=== PATIENT | female | born 1990 | race Caucasian/White ===

== ENCOUNTER 2017-03-30 06:38 | Emergency (ER) | payer MEDICAID ==
[2017-03-30] MEDS ORDERED: Diazepam TAB(*) 5 MG PO ONE (07:22)
[2017-03-30] MEDS ORDERED: NS 0.9% 1000 ML* 1,000 ML IV ONE (07:22)
[2017-03-30 11:18] LABS: Albumin 5.1 g/dL (3.2-5.2); Calcium 10.1 mg/dL (8.6-10.3); EGFR African American 109.1 (>60); EGFR Non-African American 84.8 (>60); Globulin 3.5 g/dL (2-4); Magnesium 2.4 mg/dL (1.9-2.7); Total Bilirubin 0.9 mg/dL (0.2-1.0); Total Protein 8.6 g/dL (6.4-8.9)
[2017-03-30 11:37] LABS: TSH (Thyroid Stimulating Horm) 2.09 mcIU/mL (0.34-5.60)
[2017-03-30 11:45] LABS: Prolactin 4.7 ng/mL (1.0-25.0)
[2017-03-30 13:54] VITALS: BP 102/62
[2017-03-30 14:27] LABS: Urine Bacteria Absent (Absent); Urine Bilirubin Negative (Negative); Urine Glucose Negative (Negative); Urine Nitrite Negative (Negative)
--- NOTE | 2017-03-30 15:39 | ED ---
Lakisha Barboza Edward, scribed for Paulino Cr MD on 03/30/17 at 0722 . Neurological HPI - HPI Summary HPI Summary: 26 y/o female presents to ED c/o of twitches at 03:00-04:00 this morning, indicative of seizures previously. Patient stated she has had several episodes of LOC since the morning. Associated sx: intermittent CHRIS. Denies blurred vision , CP, SOB, dysuria, ABD pain and pain in lower. Patient went to [facility] in the past for an opiate disorder; currently goes for marijuana use. No known allergies. Smoker. PMHx seizure disorder. - History of Current Complaint Chief Complaint: EDSeizure Stated Complaint: TWITCHING Time Seen by Provider: 03/30/17 07:14 Hx Obtained From: Patient Pain Intensity: 0 - Allergy/Home Medications Allergies/Adverse Reactions: Allergies Allergy/AdvReac Type Severity Reaction Status Date / Time No Known Allergies Allergy Verified 03/30/17 06:59 Home Medications: Home Medications Ativan 1 MG TAB 03/30/17 [History Confirmed 03/30/17] Gabapentin 03/30/17 [History] Seroquel 03/30/17 [History] Wellbutrin TAB* 03/30/17 [History Confirmed 03/30/17] PMH/Surg Hx/FS Hx/Imm Hx Previously Healthy: No Neurological History: Reports: Hx Seizures Infectious Disease History: No Infectious Disease History: Denies: Traveled Outside the [place] in Last 30 Days - Family History Known Family History: Positive: Seizure Disorder - Father Negative: Cardiac Disease, Diabetes - Social History Occupation: Unemployed Lives: Alone Hx Substance Use: Yes Substance Use Type: Reports: Marijuana - [facility], Other - Opiate disorder ([facility]) Hx Tobacco Use: Yes Smoking Status (MU): Current Every Day Smoker Type: Cigarettes Review of Systems Constitutional: Negative Eyes: Negative ENT: Negative Cardiovascular: Negative Negative: Palpitations, Chest Pain Respiratory: Negative Negative: Shortness Of Breath Gastrointestinal: Negative Negative: Abdominal Pain Genitourinary: Negative Negative: dysuria Musculoskeletal: Negative Skin: Negative Neurological: Other - Twitches indicative of seizure Positive: Syncope - Intermittent LOC throughout the night Psychological: Normal All Other Systems Reviewed And Are Negative: Yes Physical Exam - Summary Physical Exam Summary: The patient is well-nourished in no acute distress and in no acute pain. The skin is warm and skin color reflects adequate perfusion. The patient is a little diaphoretic. HEENT: The head is normocephalic and atraumatic. The pupils are equal and reactive. The conjunctivae are clear and without drainage. Nares are patent and without drainage. Mouth reveals moist mucous membranes and the throat is without erythema and exudate. The external ears are intact. The ear canals are patent and without drainage. The tympanic membranes are intact. Neck is supple with full range of motion and non-tender. There are no carotid bruits. There is no neck vein distension. Respiratory: Chest is non-tender. Lungs are clear to auscultation and breath sounds are symmetrical and equal. Cardiovascular: Hear is regular rate and rhythm. There is no murmur or rub auscultated. There is no peripheral edema and pulses are symmetrical and equal. Abdomen: The abdomen is soft and non-tender. There are normal bowel sounds heard in all four quadrants and there is no organomegaly palpated. Musculoskeletal: There is no back pain noted. Extremities are non-tender with full range of motion. There is good capillary refill. There is no peripheral edema or calf tenderness elicited. There is no cyanosis. Neurological: Patient is alert and oriented to person, place and time. The patient has symmetrical motor strength in all four extremities. Cranial nerves are grossly intact. Deep tendon reflexes are symmetrical and equal in all four extremities. [id number] exam is good. Psychiatric: The patient has an appropriate affect and does not exhibit any anxiety or depression. Triage Information Reviewed: Yes Vital Signs On Initial Exam: Initial Vitals Temp Pulse Resp BP Pulse Ox 98.4 F 88 14 105/69 100 03/30/17 06:40 03/30/17 06:40 03/30/17 06:40 03/30/17 06:40 03/30/17 06:40 Vital Signs Reviewed: Yes Diagnostics - Vital Signs Vital Signs Temp Pulse Resp BP Pulse Ox 03/30/17 06:40 98.4 F 88 14 105/69 100 - Laboratory Lab Results: Lab Results 03/30/17 03/30/17 Range/Units 10:46 13:25 Sodium 132 L (133-145) mmol/L Potassium 4.0 (3.5-5.0) mmol/L Chloride 102 (101-111) mmol/L Carbon Dioxide 20 L (22-32) mmol/L Anion Gap 10 (2-11) mmol/L BUN 13 (6-24) mg/dL Creatinine 0.81 (0.51-0.95) mg/dL Est GFR ( Amer) 109.1 (>60) Est GFR (Non-Af Amer) 84.8 (>60) BUN/Creatinine Ratio 16.0 (8-20) Glucose 90 (70-100) mg/dL Calcium 10.1 (8.6-10.3) mg/dL Magnesium 2.4 (1.9-2.7) mg/dL Total Bilirubin 0.90 (0.2-1.0) mg/dL AST 15 (13-39) U/L ALT 6 L (7-52) U/L Alkaline Phosphatase 53 (34-104) U/L Total Protein 8.6 (6.4-8.9) g/dL Albumin 5.1 (3.2-5.2) g/dL Globulin 3.5 (2-4) g/dL Albumin/Globulin Ratio 1.5 (1-3) TSH 2.09 (0.34-5.60) mcIU/mL Prolactin 4.7 (1.0-25.0) ng/mL Urine Color Yellow Urine Appearance Clear Urine pH 7.0 (5-9) Ur Specific Roll 1.029 (1.010-1.030) Urine Protein 1+(30 mg/dl) H (Negative) Urine Ketones 1+ H (Negative) Urine Blood Negative (Negative) Urine Nitrate Negative (Negative) Urine Bilirubin Negative (Negative) Urine Urobilinogen Negative (Negative) Ur Leukocyte Esterase Negative (Negative) Urine WBC (Auto) Absent (Absent) Urine RBC (Auto) 2+(6-10/hpf) H (Absent) Ur Squamous Epith Cells Present H (Absent) Urine Bacteria Absent (Absent) Urine Glucose Negative (Negative) Result Diagrams: 03/30/17 10:46 Lab Statement: Any lab studies that have been ordered have been reviewed, and results considered in the medical decision making process. - EKG 1 EKG Interpretation: 09:13 - Sinus rhythm. Normal axis. No STEMI. Re-Evaluation - Re-Evaluation 1 Re-Evaluation Time: 13:18 Change: Improved - Twitching gone Course/Dx - Course Assessment/Plan: Patient presented to ED c/o twitching. PMHx seizure disorder - in the past, this same twitching was indicative of a seizure. Pt states she had several episodes of LOC in ED. We were unable to acquire blood work in the ED course. On reeval @ 13:18, pt feels better - her twitching has stopped and she feels much better. Patient will be discharged with Near Syncope and questionable Seizures, with f/u with her PCP in 2-3 days. - Differential Dx Differential Diagnoses Neuro: Positive: Anxiety, Seizure Disorder, Other - drug abuse, dehydration - Diagnoses Provider Diagnoses: Near syncope, Questionable seizures Discharge - Discharge Plan Condition: Stable Disposition: HOME Patient Education Materials: Near Syncope (ED), Nonepileptic Seizures (ED) Referrals: [facility] [Outside] - 3 Days (Follow up with your PCP in 2-3 days.) The documentation as recorded by the Lakisha spence Edward accurately reflects the service I personally performed and the decisions made by me, Paulino Cr MD.
== END 2017-03-30 13:58 | disposition home or self-care (01) ==
LOC: ED 06:38
DX: R55 Syncope and collapse (principal); R56.9 Unspecified convulsions; F17.210 Nicotine dependence, cigarettes, uncomplicated
CPT/HCPCS: 36415; 80053; 81003; 81015; 83735; 84146; 84443; 93005; 99283; A9270-GY

== ENCOUNTER 2017-04-04 13:07 | Emergency (ER) | payer MEDICAID ==
[2017-04-04] MEDS ORDERED: Diazepam TAB(*) 2 MG PO ONE (14:04)
--- NOTE | 2017-04-04 14:11 | RAD ---
INDICATION: Palpitations COMPARISON: None TECHNIQUE: An AP portable view obtained at 1445 hours is submitted. FINDINGS: Bones/Soft Tissues: There are no acute bony findings. Cardiomediastinal: The cardiomediastinal silhouette is normal. Lungs: There are no infiltrates. Pleura: There are no pleural effusions. Other: None IMPRESSION: NO ACTIVE DISEASE.
[2017-04-04 14:30] LABS: Hematocrit 34 % (35-47); Hemoglobin 11.7 g/dl (12.0-16.0); Mean Corpuscular HGB Conc 34 g/dl (31-36); Mean Corpuscular Hemoglobin 29 pg (27-31); Mean Corpuscular Volume 85 fL (80-97); Mean Platelet Volume 8 um3 (7.4-10.4); Red Blood Count 4.06 10^6/ul (4.0-5.4); Red Cell Distribution Width 13 % (10.5-15); White Blood Count 5.8 10^3/ul (3.5-10.8)
[2017-04-04 14:45] LABS: ALT 8 U/L (7-52); Albumin 4.1 g/dL (3.2-5.2); Alkaline Phosphatase 42 U/L (34-104); Blood Urea Nitrogen 6 mg/dL (6-24); CO2 Carbon Dioxide 23 mmol/L (22-32); Calcium 8.9 mg/dL (8.6-10.3); Chloride 107 mmol/L (101-111); EGFR African American 119.2 (>60); EGFR Non-African American 92.7 (>60); Globulin 2.7 g/dL (2-4); Glucose 87 mg/dL (70-100); Magnesium 2.4 mg/dL (1.9-2.7); Sodium 136 mmol/L (133-145); Total Protein 6.8 g/dL (6.4-8.9)
[2017-04-04 14:49] LABS: Troponin I 0.01 ng/mL (<0.04)
[2017-04-04 14:55] LABS: AST 15 U/L (13-39); Anion Gap 6 mmol/L (2-11)
[2017-04-04 15:05] LABS: TSH (Thyroid Stimulating Horm) 0.89 mcIU/mL (0.34-5.60)
[2017-04-04 16:17] LABS: Prolactin 3.4 ng/mL (1.0-25.0)
[2017-04-04 18:01] VITALS: BP 107/65
--- NOTE | 2017-04-04 18:11 | ED ---
Yao Barboza Claudia, scribed for Joshua Rowe MD on 04/04/17 at 1406 . Neurological HPI - HPI Summary HPI Summary: 26 year old female presents to [facility] ED post Sz episode. Pt is unsure the length of the Sz since it was unwitnessed and she did LOC. Pt denies any fever and any incontinence. Pt states that she has a PMHX of Sz and takes 800mg 4x a day and has been compliant with her Rx. Pt notes unintentional twitching post Sz that is persistent upon arrival at ED. She notes this is a usual Sx accompanying her Sz and that the ED usually gives her valium. Pt states that she is inpatient at [facility] and has not been getting much sleep which might be contributing to her Sz today and last week. She notes she has not been to her neurologist in [place] for a while and her PCP Rx her Gabbapentin. She notes pain 6/10 on pain scale. Pt also takes 150mg of Wellbutrin once per day. - History of Current Complaint Chief Complaint: EDSeizure Stated Complaint: SEIZURE Time Seen by Provider: 04/04/17 13:39 Hx Obtained From: Patient Pain Intensity: 6 Pain Scale Used: 0-10 Numeric Character: Other: - UNITNENTIONAL TWITCH POST SZ Syncope Context: Unwitnessed, Loss of Consciousness: Yes Frequency: Episodes x___ - 1 Aggravating: Sleep Deprivation Associated Signs and Symptoms: Positive: Seizure. Negative: Incontinent Bladder /Bowel - Allergy/Home Medications Allergies/Adverse Reactions: Allergies Allergy/AdvReac Type Severity Reaction Status Date / Time No Known Allergies Allergy Verified 03/30/17 06:59 Home Medications: Home Medications Gabapentin CAP(*) [Neurontin 400 mg CAP(*)] 1,600 mg PO BEDTIME 04/04/17 [ History Confirmed 04/04/17] Gabapentin CAP(*) [Neurontin 400 mg CAP(*)] 800 mg PO 0900 04/04/17 [History Confirmed 04/04/17] QUEtiapine TAB* [SEROquel TAB*] 300 mg PO BEDTIME 04/04/17 [History Confirmed ] buPROPion SR TAB* [Wellbutrin SR TAB*] 150 mg PO DAILY 04/04/17 [History Confirmed 04/04/17] PMH/Surg Hx/FS Hx/Imm Hx Previously Healthy: Yes Endocrine/Hematology History: Denies: Hx Diabetes Cardiovascular History: Denies: Hx Myocardial Infarction Neurological History: Reports: Hx Seizures Infectious Disease History: Yes Infectious Disease History: Denies: Traveled Outside the [place] in Last 30 Days - Family History Known Family History: Positive: Seizure Disorder - Father Negative: Cardiac Disease, Diabetes - Social History Occupation: Unemployed Lives: Custodial - [facility] Alcohol Use: Rare Hx Substance Use: Yes Substance Use Type: Reports: Marijuana - [facility], Other - Opiate disorder ([facility]) Substance Use Comment - Amount & Last Used: in treatment at [facility] Hx Tobacco Use: Yes Smoking Status (MU): Current Every Day Smoker Type: Cigarettes Review of Systems Constitutional: Negative Negative: Fever Eyes: Negative ENT: Negative Cardiovascular: Negative Respiratory: Negative Gastrointestinal: Negative Genitourinary: Negative Negative: incontinence Musculoskeletal: Negative Skin: Negative Neurological: Other - UNINTENTIONAL TWITCH POST SZ Psychological: Normal All Other Systems Reviewed And Are Negative: Yes Physical Exam - Summary Physical Exam Summary: VITAL SIGNS: Reviewed. GENERAL: Patient is a well-developed and nourished female who is lying comfortable in the stretcher. Patient is not in any acute respiratory distress. HEAD AND FACE: No signs of trauma. No ecchymosis, hematomas or skull depressions. No sinus tenderness. EYES: PERRLA, EOMI x 2, No injected conjunctiva, no nystagmus. EARS: Hearing grossly intact. Ear canals and tympanic membranes are within normal limits. MOUTH: Oropharynx within normal limits. NECK: Supple, trachea is midline, no adenopathy, no JVD, no carotid bruit, no c- spine tenderness, neck with full ROM. CHEST: Symmetric, no tenderness at palpation LUNGS: Clear to auscultation bilaterally. No wheezing or crackles. CVS: Regular rate and rhythm, S1 and S2 present, no murmurs or gallops appreciated. ABDOMEN: Soft, non-tender. No signs of distention. No rebound no guarding, and no masses palpated. Bowel sounds are normal. EXTREMITIES: FROM in all major joints, no edema, no cyanosis or clubbing. NEURO: Alert and oriented x 3. No acute neurological deficits. Speech is normal and follows commands. UNINTENTIONAL TWITCH SKIN: Dry and warm Triage Information Reviewed: Yes Vital Signs On Initial Exam: Initial Vitals Temp Pulse Resp BP Pulse Ox 98.2 F 71 20 105/84 100 04/04/17 13:12 04/04/17 13:12 04/04/17 13:12 04/04/17 13:12 04/04/17 13:12 Vital Signs Reviewed: Yes Diagnostics - Vital Signs Vital Signs Temp Pulse Resp BP Pulse Ox 04/04/17 13:18 73 100 04/04/17 13:15 105/84 04/04/17 13:12 98.2 F 71 20 105/84 100 - Laboratory Lab Results: Lab Results 04/04/17 04/04/17 04/04/17 Range/Units 14:15 14:15 14:15 WBC 5.8 (3.5-10.8) 10^3/ul RBC 4.06 (4.0-5.4) 10^6/ul Hgb 11.7 L (12.0-16.0) g/dl Hct 34 L (35-47) % MCV 85 (80-97) fL MCH 29 (27-31) pg MCHC 34 (31-36) g/dl RDW 13 (10.5-15) % Plt Count 231 (150-450) 10^3/ul MPV 8 (7.4-10.4) um3 Neut % (Auto) 45.8 (38-83) % Lymph % (Auto) 44.4 (25-47) % Wilbarger % (Auto) 6.9 (1-9) % Eos % (Auto) 2.3 (0-6) % Baso % (Auto) 0.6 (0-2) % Absolute Neuts (auto) 2.7 (1.5-7.7) 10^3/ul Absolute Lymphs (auto) 2.6 (1.0-4.8) 10^3/ul Absolute Monos (auto) 0.4 (0-0.8) 10^3/ul Absolute Eos (auto) 0.1 (0-0.6) 10^3/ul Absolute Basos (auto) 0 (0-0.2) 10^3/ul Absolute Nucleated RBC 0 10^3/ul Nucleated RBC % 0.1 Sodium 136 (133-145) mmol/L Potassium 4.0 (3.5-5.0) mmol/L Chloride 107 (101-111) mmol/L Carbon Dioxide 23 (22-32) mmol/L Anion Gap 6 (2-11) mmol/L BUN 6 (6-24) mg/dL Creatinine 0.75 (0.51-0.95) mg/dL Est GFR ( Amer) 119.2 (>60) Est GFR (Non-Af Amer) 92.7 (>60) BUN/Creatinine Ratio 8.0 (8-20) Glucose 87 (70-100) mg/dL Lactic Acid 0.6 (0.5-2.0) mmol/L Calcium 8.9 (8.6-10.3) mg/dL Magnesium 2.4 (1.9-2.7) mg/dL Total Bilirubin 0.50 (0.2-1.0) mg/dL AST 15 (13-39) U/L ALT 8 (7-52) U/L Alkaline Phosphatase 42 (34-104) U/L CK-MB (CK-2) 0.9 (0.6-6.3) ng/mL Troponin I 0.01 (<0.04) ng/mL Total Protein 6.8 (6.4-8.9) g/dL Albumin 4.1 (3.2-5.2) g/dL Globulin 2.7 (2-4) g/dL Albumin/Globulin Ratio 1.5 (1-3) TSH 0.89 (0.34-5.60) mcIU/mL Prolactin 3.4 (1.0-25.0) ng/mL Beta HCG, Quant < 0.60 mIU/mL Result Diagrams: 04/04/17 14:15 04/04/17 14:15 Lab Statement: Any lab studies that have been ordered have been reviewed, and results considered in the medical decision making process. - Radiology CXR Xray Interpretation: No Acute Changes - NO ACTIVE DISEASE Radiology Interpretation Completed By: Radiologist - EKG 15:05 Cardiac Rate: NL EKG Rhythm: Sinus Rhythm - 66 beats/min ST Segment: Normal - NO ST elevation NIH Scale - NIH Scale Level of Consciousness: Alert/Keenly Responsive Ask Patient the Month and His/Her Age: Both Correct Ask Pt to Open/Close Eyes and Partner Marketing Intern/Release Non-Paretic Hand: Both Correctly Best Gaze (Only Horizontal Eye Movement): Normal Visual Field Testing: No Visual Loss Facial Paresis-Pt to Smile & Close Eyes or Grimace Symmetry: Normal/Symmetrical Motor Function - Right Arm: No Drift-Holds 10 Seconds Motor Function - Left Arm: No Drift-Holds 10 Seconds Motor Function - Right Leg: No Drift-Holds 10 Seconds Motor Function - Left Leg: No Drift-Holds 10 Seconds Limb Ataxia-Must be out of Proportion to Weakness Present: Absent Sensory (Use Pinprick to Test Arms/Legs/Trunk/Face): Normal Best Language (Describe Picture, Name Items): No Aphasia Dysarthria (Read Several Words): Normal Extinction and Inattention: No Abnormality Total Score: 0 Re-Evaluation - Re-Evaluation 1 Re-Evaluation Time: 15:19 Comment: Pt states that she is doing better but her unintentional twitching persists. Course/Dx - Course Course Of Treatment: 26 year old female presents to [facility] ED post Sz episode. Pt is unsure the length of the Sz since it was unwitnessed and she did LOC. Pt denies any fever and any incontinence. Pt states that she has a PMHX of Sz and takes 800mg 4x a day and has been compliant with her Rx. Pt notes unintentional twitching post Sz that is persistent upon arrival at ED. She notes this is a usual Sx accompanying her Sz and that the ED usually gives her valium. Pt states that she is inpatient at [facility] and has not been getting much sleep which might be contributing to her Sz today and last week. She notes she has not been to her neurologist in [place] for a while and her PCP Rx her Gabbapentin. She notes pain 6/10 on pain scale. Pt also takes 150mg of Wellbutrin once per day. Assessment/Plan: Results are within nml limits except for slight anemia. CXR is negative for any acute pathology. In the ed course the pt was give 4mg of Ativan and the Sx improved. I discussed the pt with Dr. Whitfield who examined the pt, after examination he requested to do an EEG. read the EEG and he recommends the pt to be d/c home with follow-up at his office. He also requested that shediscontinue the Wellbutrin. He thinks the Wellbutrin will decrease the threshold for Sz. I disclosed the case with Dr. Morley from psychiatry. He recommends the discontinue of Wellbutrin with a taper of 75mg for 7 days and then completely discontinue. He also requested if needed another medication Effexor would be another medication. However the pt declines Effexor and states she will continue taking Adderall which is Rx by her PCP. The pt is hemodynamically stable, alert and oriented x3 and will be d/c to [facility]. - Diagnoses Provider Diagnoses: Seizure - Physician Notifications Discussed Care Of Patient With: Consulted with Dr. Whitfield whom recommends EEG - Consulted with the psychiatrist on the change of Rx 1732 Time Discussed With Above Provider: 15:22 Discharge - Discharge Plan Condition: Stable Disposition: HOME Patient Education Materials: Recurrent Seizures in Adults (ED) Referrals: Non Staff,Doctor [Primary Care Provider] - Rambo Whitfield MD [Medical Doctor] - 2 Days Additional Instructions: PER INSTRUCTED: PLEASE TAKE WELLBUTRIN FOR 1 WEEK AT 75MG THEN DISCONTINUE THE WELLBUTRIN AND START THE ADDERALL THAT YOU ALREADY HAVE A PRESCRIPTION FOR FROM YOUR PCP. The documentation as recorded by the Yao spence Claudia accurately reflects the service I personally performed and the decisions made by me, Joshua Rowe MD.
--- NOTE | 2017-04-04 22:03 | CONS ---
NEUROLOGICAL CONSULTATION: DATE OF CONSULT/DICTATION: 04/04/17 - EMERGENCY DEPT PATIENT OF: Dr. Rowe. HISTORY OF PRESENT ILLNESS: This is a 26-year-old woman who has a several-year history of apparent seizures, although the details are not well known. She was apparently followed by a neurologist at [place] for number of years, but she does not remember his name. She has not been following with this doctor for a while. She has been on Neurontin 800 mg 4 times a day she notes for her seizure disorder. She has history of opioid addiction. She recently begun smoking marijuana and she was in an inpatient drug rehabilitation center. She notes that she has not been using any other street drugs or un-prescribed use of medication and has not had any withdrawal. She has been Wellbutrin for the past 4 or 5 months as well as she is on Seroquel. She denies any Ativan use, but then she was in the hospital in the ER last week on the . Apparently, she has been on Ativan. She could not describe her seizures, but had one in December and then she was in the emergency room last week with what was described as a loss of consciousness with some persistent twitching, which stopped while she was in the ER. Today, she had an apparent loss of consciousness at roughly noon or so and has had jerking of her body while she was awake that has persisted over 3 to 4-hour timeframe. This is similar to her prior spells. This jerking may be lasting a little bit longer. She has been in recent good health without any other medical problems other than her substance abuse history, her seizures and being treated for depression. She has had a past history of ADHD. PAST SURGICAL HISTORY: She denied any surgeries. ALLERGIES: She has no known drug allergies. SOCIAL HISTORY: She smokes every day. FAMILY HISTORY: No family history for seizures. REVIEW OF SYSTEMS: Negative in the all 14 spheres other than the HPI. PHYSICAL EXAMINATION: On exam, temperature 98.2, pulse 77, respirations 17, blood pressure 119/66. She is alert and oriented with normal speech and comprehension. Cranial nerves II through XII were normal. Fundi were benign. Motor exam revealed normal tone and strength to [id number]. Sensation intact to light touch. Deep tendon reflexes 2 and equal. Downgoing toes. Chest: Clear. Cardiovascular: Regular rate and rhythm without murmur. Abdomen : Soft with positive bowel sounds. LABORATORY DATA/DIAGNOSTIC DATA: Her labs include normal white count, hematocrit 34, platelets 231, normal CMP, beta HCG is negative. Prolactin has been ordered. TSH is normal. IMPRESSION: Lena has prolonged twitching, which if this is organic could be myoclonic jerks, but it seems when doing the exam with her and she can be distracted from these jerks and I wonder if there is a psychological components. It is hard to be sure and I am obtaining an EEG to try to capture events during this and I will also call up to [facility] to see if we can get further information on her. Thank you for sharing her case. [id number]/CPS #: [id number] BLAKE
== END 2017-04-04 18:00 | disposition home or self-care (01) ==
LOC: ED 13:07
DX: R56.9 Unspecified convulsions (principal); F17.210 Nicotine dependence, cigarettes, uncomplicated
CPT/HCPCS: 36415; 71010; 80053; 80171; 82553; 83605; 83735; 84146; 84443; 84484; 84702; 85025; 93005; 95816; 99283; A9270-GY

== ENCOUNTER → 2017-04-17 10:48 | Emergency (ER) | payer MEDICAID ==
--- NOTE | 2017-04-17 12:10 | RAD ---
HISTORY: seizure, hit head COMPARISONS: None TECHNIQUE: Multiple contiguous axial CT scans were obtained of the head without intravenous contrast. FINDINGS: HEMORRHAGE/INFARCT: There is no hemorrhage or acute infarct. MASSES/SHIFT: There is no mass or shift. EXTRA-AXIAL SPACES: There are no extra-axial fluid collections. SULCI AND VENTRICLES: The sulci and ventricles are normal in size and position for the patient's stated age. CEREBRUM: There are no focal parenchymal abnormalities. BRAINSTEM: There are no focal parenchymal abnormalities. CEREBELLUM: There are no focal parenchymal abnormalities. VESSELS: The vessels are grossly normal. PARANASAL SINUSES: The paranasal sinuses are clear. ORBITS: The orbits are unremarkable. BONES AND SOFT TISSUE: No bone or soft tissue abnormalities are noted. OTHER: None IMPRESSION: NO ACUTE INTRACRANIAL PATHOLOGY.
--- NOTE | 2017-04-17 12:20 | ED ---
Head Injury - HPI Summary HPI Summary: Patient presents s/p seizure. She states she does not know the type of seizures she normally has. She is a [facility] patient and has been having seizures more frequently since being at [facility]. On gabapentin 300mg four times daily for her seizures, but denies any other seizure medication. Currently on Wellbutrin despite being told by Dr Whitfield on neuro visit to discontinue. She does not think this is the reason for her increased seizures. She is on seroquil and melatonin at bedtime for sleep, but states it does not help and has chronic insomnia only sleeping 2 hours a day. Last visit she had full blood work which did not show anything. Today, she states she had a typical seizure and hit the left side of her frontal head. Denies LOC, but notes to some confusion s/p seizure which is typical for her. - History Of Current Complaint Chief Complaint: EDSeizure Stated Complaint: SEIZURE Time Seen by Provider: 04/17/17 11:07 Hx Obtained From: Patient Mechanism Of Injury: Blunt Trauma Onset/Duration: Started Hours Ago Onset of Pain: Minutes Severity Currently: Moderate Severity Initially: Moderate Pain Intensity: 7 Pain Scale Used: 0-10 Numeric Location of Head Injury: Frontal Location: Discrete At: - frontal left Alleviating Factor(s): Rest Associated Signs And Symptoms: LOC Duration Unknown, Confusion - Risk Factors SDH Risk Factor: Negative - Allergies/Home Medications Allergies/Adverse Reactions: Allergies Allergy/AdvReac Type Severity Reaction Status Date / Time No Known Allergies Allergy Verified 03/30/17 06:59 PMH/Surg Hx/FS Hx/Imm Hx Previously Healthy: Yes Endocrine/Hematology History: Denies: Hx Diabetes Cardiovascular History: Denies: Hx Myocardial Infarction Neurological History: Reports: Hx Seizures - Surgical History Surgery Procedure, Year, and Place: right arm nerve surgery, tonsilletomy - Immunization History Hx Pertussis Vaccination: No Immunizations Up to Date: Unable to Obtain/Confirm Infectious Disease History: No Infectious Disease History: Denies: Traveled Outside the [place] in Last 30 Days - Family History Known Family History: Positive: Seizure Disorder - Father Negative: Cardiac Disease, Diabetes - Social History Occupation: Unemployed Lives: With Family Alcohol Use: Rare Hx Substance Use: Yes Substance Use Type: Reports: Marijuana, Other Substance Use Comment - Amount & Last Used: in treatment at [facility] Hx Tobacco Use: Yes Smoking Status (MU): Current Every Day Smoker Type: Cigarettes Review of Systems Constitutional: Negative Eyes: Negative Cardiovascular: Negative Respiratory: Negative Positive: no symptoms reported, see HPI Musculoskeletal: Negative Positive: Headache Psychological: Normal All Other Systems Reviewed And Are Negative: Yes Physical Exam Triage Information Reviewed: Yes Vital Signs On Initial Exam: Initial Vitals Temp Pulse Resp BP Pulse Ox 98.5 F 79 21 110/67 98 04/17/17 11:02 04/17/17 11:02 04/17/17 11:02 04/17/17 11:02 04/17/17 11:02 Vital Signs Reviewed: Yes Appearance: Positive: Well-Appearing, Well-Nourished Skin: Positive: Warm, Skin Color Reflects Adequate Perfusion Head/Face: Positive: Normal Head/Face Inspection Eyes: Positive: EOMI, DENIS, Conjunctiva Clear Neck: Positive: Supple, No Lymphadenopathy Respiratory/Lung Sounds: Positive: Clear to Auscultation, Breath Sounds Present Cardiovascular: Positive: Normal, RRR Musculoskeletal: Positive: Normal, Strength/ROM Intact Neurological: Positive: Sensory/Motor Intact, Alert, Oriented to Person Place, Time, CN Intact II-III, Speech Normal Psychiatric: Positive: Normal - Kofi Coma Scale Best Eye Response: 4 - Spontaneous Coma Scale Total: 15 Diagnostics - Vital Signs Vital Signs Temp Pulse Resp BP Pulse Ox 04/17/17 11:02 98.5 F 79 21 110/67 98 - Laboratory Lab Statement: Any lab studies that have been ordered have been reviewed, and results considered in the medical decision making process. Head Injury Course/Dx Course Of Treatment: CT brain WNL. Patient and provider both agreed blood work would not need to be drawn d/t typical seizure symptoms. She is currently on no medications and recently had a full workup with neuro consult for her seizures. Patient is OK for discharge. - Diagnoses Differential Diagnosis/HQI/PQRI: Concussion With LOC, Concussion Without LOC, Other - seizure, migraine Provider Diagnoses: Seizure Discharge - Discharge Plan Condition: Stable Disposition: HOME Patient Education Materials: Nonepileptic Seizures (ED) Referrals: Non Staff,Doctor [Primary Care Provider] - Additional Instructions: Follow up with neurologist as needed
[2017-04-17 13:30] VITALS: BP 107/64
== END | disposition home or self-care (01) ==
LOC: ED 10:48
DX: R56.9 Unspecified convulsions (principal); R41.0 Disorientation, unspecified; R51 Headache; F17.210 Nicotine dependence, cigarettes, uncomplicated
CPT/HCPCS: 70450; 99282

== ENCOUNTER 2017-04-28 12:59 | Emergency (ER) | payer MEDICAID ==
[2017-04-28 14:13] LABS: Hematocrit 40 % (35-47); Hemoglobin 13.3 g/dl (12.0-16.0); Mean Corpuscular HGB Conc 34 g/dl (31-36); Mean Corpuscular Hemoglobin 28 pg (27-31); Mean Corpuscular Volume 83 fL (80-97); Mean Platelet Volume 7 um3 (7.4-10.4); Red Blood Count 4.76 10^6/ul (4.0-5.4); Red Cell Distribution Width 14 % (10.5-15); White Blood Count 8.1 10^3/ul (3.5-10.8)
[2017-04-28 14:23] LABS: Albumin 4.3 g/dL (3.2-5.2); BUN/Creatinine Ratio 13.2 (8-20); Calcium 9.9 mg/dL (8.6-10.3); EGFR African American 95.4 (>60); EGFR Non-African American 74.2 (>60); Globulin 3.2 g/dL (2-4); Magnesium 1.8 mg/dL (1.9-2.7); Potassium 3.5 mmol/L (3.5-5.0); Total Bilirubin 0.3 mg/dL (0.2-1.0); Total Protein 7.5 g/dL (6.4-8.9)
[2017-04-28 15:31] LABS: Urine Bilirubin Negative (Negative); Urine Glucose Negative (Negative); Urine Nitrite Negative (Negative)
[2017-04-28 15:43] LABS: Benzodiazepine Urine Screen None Detected (None Detect)
[2017-04-28 16:37] VITALS: BP 115/65
[2017-04-30 11:43] LABS: Call Hep C TO BE CALLED
--- NOTE | 2017-05-17 15:18 | ED ---
Lakisha Barboza Edward, scribed for Ulises Rawls MD on 04/28/17 at 1317 . Neurological HPI - HPI Summary HPI Summary: 26 y/o female BIBA s/p seizures earlier today and increased frequency of seizures since being at [facility] (voluntary admit 4 weeks ago). Pt states her seizures are different from before and had many seizures in succession today. She describes coming out of the seizures with confusion. Pt states that she used to not remember coming out of her seizures but remembered it today. Pt c/o N/V past two days and started Naltrexone. She c/o L feet pain in the ED. Associated sx: CHRIS all day today starting this morning, weakness s/p seizures, worsened sleep disturbance for the past couple of days at [facility], syncope many weeks ago. Denies numbness/tingling. No PMHx hyper- or hypokalemia. PMHx seizures (has taken Gabapentin for 5 years), ADHD. Pt last used opiates (pills) months ago, and uses marijuana. Pt broke up with her fiance yestserday. Pt had possible pseudoseizure in the ED. - History of Current Complaint Stated Complaint: SEIZURES Time Seen by Provider: 04/28/17 13:08 Hx Obtained From: Patient Onset/Duration: Sudden Onset, Started hours ago Seizure Severity: Worse Since: - Voluntary admit to [facility] 4 weeks ago Character: Weak, Confusion - Post seizure, Other: - CHRIS starting this morning. Multiple seizures earlier today. L foot pain. N/V. Sleep disturbance. Syncope many weeks ago - Allergy/Home Medications Allergies/Adverse Reactions: Allergies Allergy/AdvReac Type Severity Reaction Status Date / Time No Known Allergies Allergy Verified 03/30/17 06:59 PMH/Surg Hx/FS Hx/Imm Hx Previously Healthy: No Endocrine/Hematology History: Denies: Hx Diabetes Cardiovascular History: Denies: Hx Myocardial Infarction Neurological History: Reports: Hx Seizures Psychiatric History: Reports: Hx Attention Deficit Hyperactivity Disorder - Surgical History Surgery Procedure, Year, and Place: right arm nerve surgery, tonsilletomy - Family History Known Family History: Positive: Seizure Disorder - Father Negative: Cardiac Disease, Diabetes - Social History Alcohol Use: Rare Hx Substance Use: Yes Substance Use Type: Reports: Marijuana, Other - Opiates Substance Use Comment - Amount & Last Used: in treatment at [facility] Hx Tobacco Use: Yes Smoking Status (MU): Current Every Day Smoker Type: Cigarettes Review of Systems Negative: Fever, Chills Negative: Erythema Negative: Sore Throat Negative: Chest Pain Negative: Shortness Of Breath, Cough Positive: Vomiting, Nausea. Negative: Abdominal Pain Negative: dysuria, hematuria Positive: Arthralgia - L foot pain. Negative: Edema Negative: Rash Neurological: Other - Seizures. Confusion post seizures. Sleep disturbance. No dizziness Positive: Headache, Weakness, Syncope - Many weeks ago, prior to [facility]. Negative : Numbness - No numbness/tingling All Other Systems Reviewed And Are Negative: Yes Physical Exam - Summary Physical Exam Summary: Constitutional: Well-developed, Well-nourished, Alert. (-) Distressed Skin: Warm, Dry HENT: Eyes: Conjunctiva normal Neck: Musculoskeletal ROM normal neck. (-) JVD, (-) Stridor, (-) Tracheal deviation Cardio: Rhythm regular, rate normal, Heart sounds normal; Intact distal pulses; The pedal pulses are 2+ and symmetric. Radial pulses are 2+ and symmetric. (-) Murmur Pulmonary/Chest wall: Effort normal. (-) Respiratory distress, (-) Wheezes, (-) Rales Abd: Soft. (-) Tenderness, ~(-) Distension, (-) Guarding, (-) Rebound Musculoskeletal: (-) Edema Lymph: (-) Cervical adenopathy Neuro: Alert, Oriented x3, Strength normal, Cranial nerves II-XII are grossly intact. (-) Dysmetria, (-) Nystagmus, (-) Ataxia by finger to nose testing, (-) Sensory deficit. Psych: Mood and affect Normal Triage Information Reviewed: Yes Vital Signs On Initial Exam: Initial Vitals Temp Pulse Resp BP Pulse Ox 37.3 C 79 20 121/78 99 04/28/17 13:55 04/28/17 13:55 04/28/17 13:55 04/28/17 13:55 04/28/17 13:55 Vital Signs Reviewed: Yes Diagnostics - Vital Signs Vital Signs Temp Pulse Resp BP Pulse Ox 04/28/17 14:30 86 115/65 98 04/28/17 14:00 93 113/79 96 04/28/17 13:57 82 95 04/28/17 13:56 37.3 C 78 20 121/78 100 04/28/17 13:55 37.3 C 79 20 121/78 99 - Laboratory Lab Results: Lab Results 04/28/17 04/28/17 04/28/17 Range/Units 13:50 13:50 13:50 WBC 8.1 (3.5-10.8) 10^3/ul RBC 4.76 (4.0-5.4) 10^6/ul Hgb 13.3 (12.0-16.0) g/dl Hct 40 (35-47) % MCV 83 (80-97) fL MCH 28 (27-31) pg MCHC 34 (31-36) g/dl RDW 14 (10.5-15) % Plt Count 267 (150-450) 10^3/ul MPV 7 L (7.4-10.4) um3 Neut % (Auto) 70.2 (38-83) % Lymph % (Auto) 21.9 L (25-47) % [place] % (Auto) 6.8 (1-9) % Eos % (Auto) 0.5 (0-6) % Baso % (Auto) 0.6 (0-2) % Absolute Neuts (auto) 5.7 (1.5-7.7) 10^3/ul Absolute Lymphs (auto) 1.8 (1.0-4.8) 10^3/ul Absolute Monos (auto) 0.6 (0-0.8) 10^3/ul Absolute Eos (auto) 0 (0-0.6) 10^3/ul Absolute Basos (auto) 0.1 (0-0.2) 10^3/ul Absolute Nucleated RBC 0 10^3/ul Nucleated RBC % 0 INR (Anticoag Therapy) 0.90 (0.89-1.11) Sodium 137 (133-145) mmol/L Potassium 3.5 (3.5-5.0) mmol/L Chloride 102 (101-111) mmol/L Carbon Dioxide 25 (22-32) mmol/L Anion Gap 10 (2-11) mmol/L BUN 12 (6-24) mg/dL Creatinine 0.91 (0.51-0.95) mg/dL Est GFR ( Amer) 95.4 (>60) Est GFR (Non-Af Amer) 74.2 (>60) BUN/Creatinine Ratio 13.2 (8-20) Glucose 88 (70-100) mg/dL Lactic Acid (0.5-2.0) mmol/L Calcium 9.9 (8.6-10.3) mg/dL Magnesium 1.8 L (1.9-2.7) mg/dL Total Bilirubin 0.30 (0.2-1.0) mg/dL AST 23 (13-39) U/L ALT 9 (7-52) U/L Alkaline Phosphatase 49 (34-104) U/L Total Protein 7.5 (6.4-8.9) g/dL Albumin 4.3 (3.2-5.2) g/dL Globulin 3.2 (2-4) g/dL Albumin/Globulin Ratio 1.3 (1-3) Urine Color Urine Appearance Urine pH (5-9) Ur Specific [place] (1.010-1.030) Urine Protein (Negative) Urine Ketones (Negative) Urine Blood (Negative) Urine Nitrate (Negative) Urine Bilirubin (Negative) Urine Urobilinogen (Negative) Ur Leukocyte Esterase (Negative) Urine Glucose (Negative) Urine Opiates Screen (None Detect) Ur Barbiturates Screen (None Detect) Ur Phencyclidine Scrn (None Detect) Ur Amphetamines Screen (None Detect) U Benzodiazepines Scrn (None Detect) Urine Cocaine Screen (None Detect) U Cannabinoids Screen (None Detect) Hepatitis A IgM Ab (Nonreactive) Hep Bs Antigen (Nonreactive) Hep B Core IgM Ab (Nonreactive) Hepatitis C Antibody (Nonreactive) 04/28/17 04/28/17 04/28/17 Range/Units 13:50 13:56 15:10 WBC (3.5-10.8) 10^3/ul RBC (4.0-5.4) 10^6/ul Hgb (12.0-16.0) g/dl Hct (35-47) % MCV (80-97) fL MCH (27-31) pg MCHC (31-36) g/dl RDW (10.5-15) % Plt Count (150-450) 10^3/ul MPV (7.4-10.4) um3 Neut % (Auto) (38-83) % Lymph % (Auto) (25-47) % Kitt[place] % (Auto) (1-9) % Eos % (Auto) (0-6) % Baso % (Auto) (0-2) % Absolute Neuts (auto) (1.5-7.7) 10^3/ul Absolute Lymphs (auto) (1.0-4.8) 10^3/ul Absolute Monos (auto) (0-0.8) 10^3/ul Absolute Eos (auto) (0-0.6) 10^3/ul Absolute Basos (auto) (0-0.2) 10^3/ul Absolute Nucleated RBC 10^3/ul Nucleated RBC % INR (Anticoag Therapy) (0.89-1.11) Sodium (133-145) mmol/L Potassium (3.5-5.0) mmol/L Chloride (101-111) mmol/L Carbon Dioxide (22-32) mmol/L Anion Gap (2-11) mmol/L BUN (6-24) mg/dL Creatinine (0.51-0.95) mg/dL Est GFR ( Amer) (>60) Est GFR (Non-Af Amer) (>60) BUN/Creatinine Ratio (8-20) Glucose (70-100) mg/dL Lactic Acid 2.2 H* (0.5-2.0) mmol/L Calcium (8.6-10.3) mg/dL Magnesium (1.9-2.7) mg/dL Total Bilirubin (0.2-1.0) mg/dL AST (13-39) U/L ALT (7-52) U/L Alkaline Phosphatase (34-104) U/L Total Protein (6.4-8.9) g/dL Albumin (3.2-5.2) g/dL Globulin (2-4) g/dL Albumin/Globulin Ratio (1-3) Urine Color Yellow Urine Appearance Clear Urine pH 6.0 (5-9) Ur Specific [place] 1.010 (1.010-1.030) Urine Protein Negative (Negative) Urine Ketones Negative (Negative) Urine Blood Negative (Negative) Urine Nitrate Negative (Negative) Urine Bilirubin Negative (Negative) Urine Urobilinogen Negative (Negative) Ur Leukocyte Esterase Negative (Negative) Urine Glucose Negative (Negative) Urine Opiates Screen (None Detect) Ur Barbiturates Screen (None Detect) Ur Phencyclidine Scrn (None Detect) Ur Amphetamines Screen (None Detect) U Benzodiazepines Scrn (None Detect) Urine Cocaine Screen (None Detect) U Cannabinoids Screen (None Detect) Hepatitis A IgM Ab Nonreactive (Nonreactive) Hep Bs Antigen Nonreactive (Nonreactive) Hep B Core IgM Ab Nonreactive (Nonreactive) Hepatitis C Antibody High reactive H (Nonreactive) 04/28/17 Range/Units 15:10 WBC (3.5-10.8) 10^3/ul RBC (4.0-5.4) 10^6/ul Hgb (12.0-16.0) g/dl Hct (35-47) % MCV (80-97) fL MCH (27-31) pg MCHC (31-36) g/dl RDW (10.5-15) % Plt Count (150-450) 10^3/ul MPV (7.4-10.4) um3 Neut % (Auto) (38-83) % Lymph % (Auto) (25-47) % Kitt[place] % (Auto) (1-9) % Eos % (Auto) (0-6) % Baso % (Auto) (0-2) % Absolute Neuts (auto) (1.5-7.7) 10^3/ul Absolute Lymphs (auto) (1.0-4.8) 10^3/ul Absolute Monos (auto) (0-0.8) 10^3/ul Absolute Eos (auto) (0-0.6) 10^3/ul Absolute Basos (auto) (0-0.2) 10^3/ul Absolute Nucleated RBC 10^3/ul Nucleated RBC % INR (Anticoag Therapy) (0.89-1.11) Sodium (133-145) mmol/L Potassium (3.5-5.0) mmol/L Chloride (101-111) mmol/L Carbon Dioxide (22-32) mmol/L Anion Gap (2-11) mmol/L BUN (6-24) mg/dL Creatinine (0.51-0.95) mg/dL Est GFR ( Amer) (>60) Est GFR (Non-Af Amer) (>60) BUN/Creatinine Ratio (8-20) Glucose (70-100) mg/dL Lactic Acid (0.5-2.0) mmol/L Calcium (8.6-10.3) mg/dL Magnesium (1.9-2.7) mg/dL Total Bilirubin (0.2-1.0) mg/dL AST (13-39) U/L ALT (7-52) U/L Alkaline Phosphatase (34-104) U/L Total Protein (6.4-8.9) g/dL Albumin (3.2-5.2) g/dL Globulin (2-4) g/dL Albumin/Globulin Ratio (1-3) Urine Color Urine Appearance Urine pH (5-9) Ur Specific [place] (1.010-1.030) Urine Protein (Negative) Urine Ketones (Negative) Urine Blood (Negative) Urine Nitrate (Negative) Urine Bilirubin (Negative) Urine Urobilinogen (Negative) Ur Leukocyte Esterase (Negative) Urine Glucose (Negative) Urine Opiates Screen None detected (None Detect) Ur Barbiturates Screen None detected (None Detect) Ur Phencyclidine Scrn None detected (None Detect) Ur Amphetamines Screen None detected (None Detect) U Benzodiazepines Scrn None detected (None Detect) Urine Cocaine Screen None detected (None Detect) U Cannabinoids Screen None detected (None Detect) Hepatitis A IgM Ab (Nonreactive) Hep Bs Antigen (Nonreactive) Hep B Core IgM Ab (Nonreactive) Hepatitis C Antibody (Nonreactive) Result Diagrams: 04/28/17 13:50 04/28/17 13:50 Lab Statement: Any lab studies that have been ordered have been reviewed, and results considered in the medical decision making process. - EKG 1 EKG Rhythm: Sinus Rhythm - @ 92 bpm EKG Interpretation: 14:08 - No STEMI Re-Evaluation - Re-Evaluation 1 Re-Evaluation Time: 16:05 - Discussed plan with pt Course/Dx - Course Assessment/Plan: 26 y/o female BIBA s/p seizures earlier today and increased frequency of seizures since being at [facility] (voluntary admit 4 weeks ago). Pt states her seizures are different from before and had many seizures in succession today. She describes coming out of the seizures with confusion. Pt states that she used to not remember coming out of her seizures but remembered it today. Pt c/o N/V past two days and started Naltrexone. She c/o L feet pain in the ED. Associated sx: CHRIS all day today starting this morning, weakness s/p seizures, worsened sleep disturbance for the past couple of days at [facility], syncope many weeks ago. Denies numbness/tingling. No PMHx hyper- or hypokalemia. PMHx seizures (has taken Gabapentin for 5 years). Pt last used opiates (pills) months ago, and uses marijuana. Pt broke up with her fiance yestserday. Pt had 1 seizure in the ED. EKG @ 14:08 shows SINUS RHYTHM @ 92 bpm. TEST RESULTS SHOW LACTIC ACID 2.2. No seizure activity visualized in the ED. Pt was informed that significant stress and insomnia are seizure triggers. Pt will be d/c home with f/u neurology. Pt will also be instructed to ween off Wellbutrin. - Diagnoses Provider Diagnoses: Breakthrough seizure, Stress reaction, Insomnia Discharge - Discharge Plan Condition: Stable Disposition: HOME Prescriptions: Melatonin 10 mg PO BEDTIME #30 cap diPHENhydraMINE PO* [Benadryl PO 50 MG CAP*] 50 mg PO BEDTIME PRN #30 cap PRN Reason: Insomnia Patient Education Materials: Stress (ED), Insomnia (ED), Nonepileptic Seizures (ED) Referrals: Rambo Whitfield MD [Medical Doctor] - 3 Days (Please f/u in 2-3 days) Additional Instructions: Please ween off Wellbutrin - take 1/2 tablet daily for one week, then discontinue. The documentation as recorded by the Lakisha spence Edward accurately reflects the service I personally performed and the decisions made by me, Ulises Rawls MD.
== END 2017-04-28 16:47 | disposition home or self-care (01) ==
LOC: ED 12:59
DX: G40.911 Epilepsy, unspecified, intractable, with status epilepticus (principal); F43.9 Reaction to severe stress, unspecified; G47.00 Insomnia, unspecified; R11.2 Nausea with vomiting, unspecified; M79.672 Pain in left foot; R51 Headache; R53.1 Weakness; F90.9 Attention-deficit hyperactivity disorder, unspecified type; F12.90 Cannabis use, unspecified, uncomplicated; F17.210 Nicotine dependence, cigarettes, uncomplicated
CPT/HCPCS: 36415; 80053; 80074; 80307; 81003; 83605; 83735; 85025; 85610; 93005; 99284